=== PATIENT | male | born 1970 | race Caucasian/White ===

== ENCOUNTER 2025-06-20 06:22 | Day surgery (SDC) | payer BC, SELFPAY ==
[2025-06-13 14:42] VITALS: BMI 35.9
--- NOTE | 2025-06-17 07:13 | EXP.HP ---
History of Present Illness *Admission Date: 06/20/25 *History of present illness: Mr. Crespo is a 55-year-old gentleman who is here for follow-up screening/surveillance colonoscopy secondary to a personal history of adenomatous colon polyps. He had a colonoscopy in October 2012 and had 3 polyps (tubular adenomas x 3) removed. His colonoscopy in December 2015 revealed a single polyp (tubular adenoma) which was removed. His last colonoscopy in July 2021 revealed 4 diminutive polyps (tubular adenomas x 4) which were removed. He reports no abdominal pain, weight loss, change in his bowel habits or rectal bleeding. He reports no family history of colon cancer. The examination is deemed medically necessary for screening/surveillance colonoscopy. The patient has been seen, interviewed and examined prior to the procedure by both myself and the anesthesia provider. [facility] Disclaimer: The information contained in this section may have been updated after the patient was seen, as this information can be updated by other users. Medical History GERD (gastroesophageal reflux disease) Surgical History History of right hip replacement History of back surgery Family History Other No significant family history Social History (Updated 06/20/25 @ 07:08 by Sowmya Beltrán RN) Smoking Status: Former smoker alcohol intake: never substance use type: marijuana current occupational status: employed Travel in the last 8 weeks?: None Have you lived/traveled outside [place] in past 30 days?: No Contact w/someone who lives/traveled outside US past 30 days?: No Exposure to someone with infectious disease in past 14 days?: No Do you have a fever (greater than 100.4 F or 38 C)?: No Have you tested positive for COVID-19?: No Exposed to someone with COVID-19 in past 14 days?: No Do you have a sore throat?: No Do you have a cough?: No Do you have any weakness?: No Do you have any diarrhea?: No Are you experiencing any unusual bleeding?: No Do you have any muscle aches/pain?: No Do you have any abdominal pain?: No Are you experiencing loss of taste or smell?: No Review of Systems Review of Systems Review of systems (narrative): Negative *Cardiovascular Comments: Negative *Gastrointestinal Comments: Negative *Genitourinary Comments: Negative *Musculoskeletal Comments: Negative *Neurologic Comments: Negative Meds Home Medications and Allergies Home Medications ?Medication ?Instructions ?Recorded ?Confirmed ?Type sodium,potassium,mag sulfates 17.5 See Rx Instructions PO .COMPLEX 06/10/25 06/20/25 Rx gram-3.13 gram-1.6 gram oral soln #354 mL (Suprep Bowel Prep Kit) gemfibrozil 600 mg tablet 600 mg PO DAILY 06/13/25 06/20/25 History omeprazole 20 mg tablet,delayed 20 mg PO DAILY 06/13/25 06/20/25 History release New Prescriptions to Start Prescriptions: Allergies Allergy/AdvReac Type Severity Reaction Status Date / Time Unable to Assess Allergy Verified 02/27/25 15:30 Exam *Routine HEENT Exam Head: Present normocephalic Eye: Present EOMI and PERRL ENT: Present mucous membranes moist *Routine Neck Exam Neck: Present supple *Routine Respiratory Exam Respiratory: Present CTA bilaterally *Routine Cardiovascular Exam Cardiovascular: Present RRR *Routine Abdominal Exam Abdominal: Present soft and normoactive bowel sounds; Absent tenderness *Routine Rectal Exam Rectal:: deferred *Routine Genitalia Exam Genitalia:: deferred *Routine Extremities Exam Extremities: Absent cyanosis, clubbing or edema *Routine Skin Exam Skin: Present warm; Absent rash *Routine Neurological Exam Neurological: Present alert and oriented X3 Assessment and Plan *Assessment and plan (1) Personal history of adenomatous and serrated colon polyps: Status: Acute Category: Medical Code(s): Z86.0101 - Personal history of adenomatous and serrated colon polyps (2) Screening for colon cancer: Status: Acute Category: Medical Code(s): Z12.11 - Encounter for screening for malignant neoplasm of colon Plan A/P: 1. Personal history of adenomatous colon polyps is the preprocedural diagnosis. The patient will be anesthetized/sedated using MAC sedation. The patient has been seen and examined. Cardiac and lung assessment prior to the examination is stable. Proceed with planned screening colonoscopy.
[2025-06-20 07:04] VITALS: BP 161/97; PULSE 67; RESP 16; TEMP 36.1; O2SAT 97; BMI 35.9
--- NOTE | 2025-06-20 07:09 | P.PCN_ITS ---
[facility] Procedure Note Date: 06/20/25 Time: 08:31 Procedure Note:: Colonoscopy Procedure Report: Colonoscopy with cold snare polypectomy Endoscopist: Reece Briseno II, MD Referring physician: Shankar Duque MD Date of Procedure: June 20, 2025 Equipment: Olympus [id number] adult colonoscope Sedation: MAC sedation Indication: Mr. Crespo is a 55-year-old gentleman who is here for follow-up screening/surveillance colonoscopy secondary to a personal history of adenomatous colon polyps. He had a colonoscopy in October 2012 and had 3 polyps (tubular adenomas x 3) removed. His colonoscopy in December 2015 revealed a single polyp (tubular adenoma) which was removed. His last colonoscopy in July 2021 revealed 4 diminutive polyps (tubular adenomas x 4) which were removed. He reports no abdominal pain, weight loss, change in his bowel habits or family history of colon cancer. The patient does note occasional spotting of blood on the toilet tissue that he reports happening about once a month. He does suspect that this is hemorrhoidal but reports no hemorrhoidal prolapse. The examination is deemed medically necessary for screening/surveillance colonoscopy. Procedure: Prior to the procedure, a history and physical exam was performed, and patient's medications and allergies were reviewed. The risks, benefits and alternatives of the sedation and procedure were discussed with the patient. All questions were answered and informed consent was obtained. The patient was brought to the procedure room. Patient identification and proposed procedure were verified by the physician and the nurse. The patient was placed in a left lateral decubitus position and the scope was passed under direct vision. Throughout the procedure, the patient's blood pressure, pulse, and oxygen saturations were monitored continuously. The colonoscopy was accomplished without difficulty. The patient tolerated the procedure well. Findings: On digital rectal examination there was normal rectal tone. There were external hemorrhoidal tags. The prostate was 2+, mildly firm but symmetric without nodules. The colonoscope was introduced through the anal canal to the rectum and advanced to the cecum. The ileocecal valve and appendiceal orifice were identified. The scope was advanced a short distance into the ileum which appeared grossly normal. The scope was then withdrawn into the colon. There were 4 colon polyps (ascending x 1 (4 mm) and descending x 3 (3, 4 and 4 mm)). These were all removed via cold snare polypectomy. The cecum, ascending, transverse, descending, sigmoid and rectum were grossly normal. There were no mucosal abnormalities identified. Upon retroflexion within the rectum there were grade 2 internal hemorrhoids. The preparation was fair to good throughout with Cromwell Preparation Score of 7?8 out of 9. The cecal time was 12 minutes. Impression: 1. Diminutive colonic polyps x 4 2. Grade 2 internal hemorrhoids with external hemorrhoidal tags Plan: I will follow-up the polyp histology and recommend repeat screening/surveillance colonoscopy again in 5 years. I would continue psyllium Konsyl fiber supplementation on a long-term daily maintenance basis.
[2025-06-20] MEDS: LACTATED RINGERS 1000ML 1,000 ML 50 ML IV (07:21)
--- NOTE | 2025-06-20 07:30 | EXP.ANES.CKL ---
[facility] Disclaimer: The information contained in this section may have been updated after the patient was seen, as this information can be updated by other users. Medical History GERD (gastroesophageal reflux disease) Surgical History History of right hip replacement History of back surgery Family History Other No significant family history Social History (Updated 06/20/25 @ 07:08 by Sowmya Beltrán RN) Smoking Status: Former smoker alcohol intake: never substance use type: marijuana current occupational status: employed Travel in the last 8 weeks?: None Have you lived/traveled outside [place] in past 30 days?: No Contact w/someone who lives/traveled outside [place] past 30 days?: No Exposure to someone with infectious disease in past 14 days?: No Do you have a fever (greater than 100.4 F or 38 C)?: No Have you tested positive for COVID-19?: No Exposed to someone with COVID-19 in past 14 days?: No Do you have a sore throat?: No Do you have a cough?: No Do you have any weakness?: No Do you have any diarrhea?: No Are you experiencing any unusual bleeding?: No Do you have any muscle aches/pain?: No Do you have any abdominal pain?: No Are you experiencing loss of taste or smell?: No [facility] Anesthesia Checklist Patient Identification Patient Identification: Arm Band Structural Data Admitted From: Home Planned Operative Procedure/s: Colonoscopy Consent for Planned Operative Procedure(s) Verified: Yes Verified Documents: Surgical Consent and History and Physical NPO Status Verified Time NPO: 00:00 Additional verifications Anesthesia Reactions: No Airway Assessment Mallampati Score:: Class II C-Spine Mobility Assessed: Yes TMJ Mobility Assessed: Yes Dentition: Good Dentition Neurological Assessment Level of Consciousness: Awake, Alert and Appropriate Anesthesia Plan Anesthesia Risk discussed: Yes Anesthesia Plan: Verified ASA Class: II Anesthesia Type: MAC
[2025-06-20 08:32] VITALS: BP 138/71; PULSE 75; RESP 18; TEMP 36.1; O2SAT 94
[2025-06-20 08:42] VITALS: BP 106/65; PULSE 74; O2SAT 96
[2025-06-20 08:52] VITALS: BP 107/64; PULSE 75; O2SAT 96
[2025-06-20 09:02] VITALS: BP 141/98; PULSE 74; O2SAT 98
== END 2025-06-20 09:02 | disposition home or self-care (01) ==
PROVIDERS: PCP Internal Medicine; Visit Provider Internal Medicine Gastroenterology
PROC: 0DJD8ZZ Inspection of Lower Intestinal Tract, Via Natural or Artificial Opening Endoscopic (ICD-10-PCS; CPT 45378; principal; 2025-06-20 08:00)
DX: Z12.11 Encounter for screening for malignant neoplasm of colon (principal); D12.2 Benign neoplasm of ascending colon; D12.4 Benign neoplasm of descending colon; K64.1 Second degree hemorrhoids; K64.4 Residual hemorrhoidal skin tags; Z86.0101 Personal history of adenomatous and serrated colon polyps; K21.9 Gastro-esophageal reflux disease without esophagitis; Z79.899 Other long term (current) drug therapy; Z87.891 Personal history of nicotine dependence
CPT/HCPCS: 45385; J2003; J2704; J7120